=== PATIENT | female | born 1990 | race Caucasian/White ===

== ENCOUNTER 2016-09-24 19:24 | Emergency (ER) | payer MEDICAID, OTHER ==
[~2016-09-24] VITALS: Ht 154.9 cm; Wt 90.0 kg
[~2016-09-24 19:24] MED LIST: BACTDS PO; CEPH-443 PO; IBUP-1542 PO
[2016-09-24 19:30] VITALS: Ht 154.9 cm; Wt 90.0 kg
[2016-09-24 21:45] LABS: URINE BLOOD (Dip) POC Negative (NEGATIVE)
--- NOTE | 2016-09-24 22:19 | RADRPT ---
PROCEDURE: US OB. US OB Transabd / Tri CLINICAL INDICATION: Pelvic pain. 15wks TECHNIQUE: Multiple sonographic images of the pelvis were obtained. The images were reviewed on a PACS workstation. COMPARISON: No prior studies are available for comparison. FINDINGS: There is a single viable intrauterine gestation. Cardiac activity is present with 130 beats per min false pass. There is a vertex presentation. Measurements were made in order to determine age. The results are as follows: BPD =3.0 cm. HC =11.3 cm. AC =9.2 cm. FL =1.8 cm. Estimated gestational age of approximately 15 weeks and 3 days. The estimated date of delivery is 03/15/2017. Estimated delivery date by last menstrual period 07/2016. The EFW = 122 grams, 63rd percentile . The placenta is anterior, grade 0. There is no evidence for an abruption or placenta previa. There is a normal appearing amount of amniotic fluid with an none small vertical pocket = 4.3 cm. IMPRESSION: Single viable intrauterine gestation of approximately 15 weeks and 3 days. The estimated date of de livery is 03/15/2017. RPTAT: HBST . .Pal Hdz MD, MD Date Time Electronically viewed and signed by .Pal Hdz MD, on 09/24/2016 22:19 .T/
[2016-09-24 23:26] VITALS: BP 121/72; PULSE 89; RESP 18; TEMP 97.5
--- NOTE | 2016-09-25 00:48 | ERA ---
ER Documentation Chief Complaint Date/Time DATE: 09/25/16 TIME: 00:43 Chief Complaint low back pain 4 days, 15 weeks HPI Patient is a 26-year-old female presents morning of back pain. Patient is 15 weeks . Complains of a little bit of radiation of pain to the front of her stomach above the pelvic area. Patient saw her [facility] who told her to come here. Patient is back and forth. Patient describes the pain as a 3 out of 10. Patient has not recognized any factors that relieve the pain. Patient denies any dysuria, hematuria, some bleeding, spotting, pain, dyspareunia, pelvic pain , fever or change in bowel or bladder habits. ROS All systems reviewed and are negative except as per history of present illness. Medications Home Meds Active Scripts Ibuprofen* (Motrin*) 600 Mg Tab, 600 MG PO Q8 for 10 Days, #30 TAB 0 Refills Prov:ROSEY BARBA PA-C 02/11/16 Ibuprofen* (Motrin*) 600 Mg Tab, 600 MG PO Q8, #14 Prov:NINA HUGHES DO 03/05/15 Sulfamethoxazole-Trimethoprim* (Bactrim* DS) 800-160 Mg Tab, 1 TAB PO BID for 10 Days, TAB Prov:HAYES DAVID PA-C 01/03/15 Cephalexin* (Keflex*) 500 Mg Capsule, 500 MG PO QID for 7 Days, CAP Prov:HAYES DAVID PA-C 01/03/15 Allergies Allergies: Coded Allergies: acetaminophen (Verified Allergy, Unknown, 03/05/15) hydrocodone bit (Verified Allergy, Unknown, 03/05/15) PMhx/Soc History of Surgery: No Anesthesia Reaction: No Hx Neurological Disorder: No Hx Respiratory Disorders: Yes (asthma) Hx Cardiac Disorders: No Hx Psychiatric Problems: No Hx Miscellaneous Medical Probl: No Hx Alcohol Use: No Hx Substance Use: No Hx Tobacco Use: No Smoking Status: Never smoker Physical Exam Vitals Vital Signs Date Time Temp Pulse Resp B/P Pulse Ox O2 Delivery O2 Flow Rate FiO2 09/24/16 23:26 97.5 89 18 121/72 98 Room Air 09/24/16 19:30 98.2 107 18 137/81 98 Physical Exam Const: Overweight 26-year-old female Head: Atraumatic Eyes: Normal Conjunctiva ENT: Normal External Ears, Nose and Mouth. Neck: Full range of motion..~ No meningismus. Resp: Clear to auscultation bilaterally Cardio: Regular rate and rhythm, no murmurs Abd: Soft, non tender, non distended. Normal bowel sounds. He is appears to be within normal limits for size. Skin: No petechiae or rashes Back: No midline or flank tenderness Ext: No cyanosis, or edema Neur: Awake and alert Psych: Normal Mood and Affect Results 24 hrs Laboratory Tests Test 09/24/16 21:45 Bedside Urine pH (LAB) 6.5 Bedside Urine Protein (LAB) Negative Bedside Urine Glucose (UA) Negative Bedside Urine Ketones (LAB) Negative Bedside Urine Blood Negative Bedside Urine Nitrite (LAB) Negative Bedside Urine Leukocyte Esterase (L Negative Procedures/MDM Patient is a 26-year-old female who is 15 weeks complaining of back pain with radiation to the abdomen. Patient is not tender to palpation of the abdomen. Patient's urine was negative for signs of infection. Patient has no red flags to be imaged for back pain. Went ahead and got an ultrasound to evaluate the fetus. The ultrasound was unremarkable showing a viable fetus. We will go ahead and discharge this patient with return precautions. Have advised the patient to follow-up with [facility] within the next 1-3 days. I spoke with my attending who agrees my assessment and plan. Departure Diagnosis: Primary Impression: Back pain Qualified Code: M54.5 - Acute low back pain without sciatica, unspecified back pain laterality Condition: Stable Patient Instructions: Back Pain (Acute Or Chronic) Additional Instructions: Return to emergency department if symptoms worsen or neuro symptoms develop or DEWAYNE CASTELLANO PA-C Sep 25, 2016 00:48
== END 2016-09-24 23:26 | disposition home or self-care (01) ==
LOC: FTE 19:24
DX: O99.89 Other specified diseases and conditions complicating pregnancy, childbirth and the puerperium (principal); M54.5 Low back pain; J45.909 Unspecified asthma, uncomplicated; O99.512 Diseases of the respiratory system complicating pregnancy, second trimester; Z3A.15 15 weeks gestation of pregnancy
CPT/HCPCS: 76805; 81003; Z7502

== ENCOUNTER 2017-02-28 09:26 | Inpatient (IN) | payer MEDICAID, OTHER ==
[~2017-02-28] VITALS: Ht 149.9 cm; Wt 97.7 kg
[2017-02-28] MEDS ORDERED: LACTATED RINGER'S 1,000 ML IV SCH (09:39)
[2017-02-28] MEDS ORDERED: LACTATED RINGER'S 1,000 ML IV PRN (09:45)
[2017-02-28 09:52] VITALS: BMI 40.7
[2017-02-28] MEDS ORDERED: BUTORPHANOL 2 MG INJ ONE (09:55)
[2017-02-28] MEDS ORDERED: MISOPROSTOL 200 MCG TAB PR PRN ×2 (10:00→21:30)
[2017-02-28] MEDS ORDERED: LIDOCAINE 1% (MPF) 30 ML INJ INJ PRN (10:00)
[2017-02-28] MEDS ORDERED: IBUPROFEN 600 MG TAB PO PRN (10:00)
[2017-02-28] MEDS ORDERED: MINERAL OIL LIGHT 10 ML VIAL ONE (10:00)
[2017-02-28] MEDS ORDERED: METHYLERGONOVINE 0.2 MG INJ IM PRN ×2 (10:00→21:30)
[2017-02-28] MEDS ORDERED: OXYTOCIN 30 UNITS/LR 500 ML IV SCH (10:00)
[2017-02-28] MEDS ORDERED: CARBOPROST 250 MCG INJ IM PRN ×2 (10:00→21:30)
[2017-02-28] MEDS ORDERED: OXYTOCIN 30 UNITS/LR 500 ML IV PRN ×2 (10:00→21:30)
[2017-02-28] MEDS ORDERED: HYDROCODONE/APAP (5/325) TAB PO PRN ×2 (10:00→21:30)
[2017-02-28] MEDS ORDERED: AMPICILLIN 2 GM/NS (PMX) 100 ML IV ONE (10:00)
[2017-02-28] MEDS: BUTORPHANOL 2 MG INJ IV PRN ×2 (10:07→11:50)
[2017-02-28 10:08] LABS: ABNORMAL IP MESSAGE 1; BASOPHILS % 0.5 % (0.0-2.0); EOSINOPHILS # 0.1 10^3/ul (0.0-0.5); EOSINOPHILS % 1.7 % (0.0-7.0); HEMATOCRIT 44.5 % (37.0-47.0); HEMOGLOBIN 14.5 g/dl (12.0-16.0); LYMPHOCYTES % 25.6 % (15.0-51.0); MEAN CORPUSCULAR HEMOGLOBIN 29.4 pg (29.0-33.0); MEAN CORPUSCULAR HGB CONC 32.6 g/dl (32.0-37.0); MEAN CORPUSCULAR VOLUME 90.1 fl (82.0-101.0); MEAN PLATELET VOLUME 13.6 fl (7.4-10.4); MONOCYTE # 0.5 10^3/ul (0.3-0.9); MONOCYTES % 6.6 % (0.0-11.0); NEUTROPHILS % 65.1 % (39.0-77.0); PLATELET COUNT 146 10^3/UL (140-415); RED BLOOD COUNT 4.94 10^6/ul (4.20-5.40); RED CELL DISTRIBUTION WIDTH 15.4 % (11.5-14.5); WHITE BLOOD COUNT 7.7 10^3/ul (4.8-10.8)
[2017-02-28 10:09] LABS: POSITIVE DIFF @See below
[2017-02-28 10:10] VITALS: Ht 149.9 cm; Wt 97.7 kg
[2017-02-28 10:11] VITALS: BP 128/62; PULSE 80; RESP 22
[2017-02-28 10:31] LABS: INR 0.84; PROTIME 11.5 Sec (12.2-14.2); PT RATIO 0.9
[2017-02-28 10:32] LABS: PARTIAL THROMBOPLASTIN TIME 27.1 Sec (25.0-35.0)
[2017-02-28] MEDS ORDERED: ONDANSETRON 4 MG INJ IV STA (12:17)
[2017-02-28] MEDS ORDERED: ONDANSETRON 4 MG INJ ONE (12:19)
[2017-02-28] MEDS ORDERED: CITRIC ACID/NA CITRATE 30 ML CUP ONE (12:19)
[2017-02-28] MEDS ORDERED: CITRIC ACID/NA CITRATE 30 ML CUP PO ONE (12:20)
[2017-02-28] MEDS ORDERED: TRIMETHOBENZAMIDE 100 MG/ML VIAL IM PRN (12:30)
[2017-02-28] MEDS ORDERED: NALOXONE (0.4 MG/ML) INJ IV PRN (12:30)
[2017-02-28] MEDS ORDERED: DIPHENHYDRAMINE 50 MG INJ IV PRN (12:30)
[2017-02-28] MEDS ORDERED: morphine 4 MG/ML VIAL IV PRN (12:30)
[2017-02-28] MEDS ORDERED: KETOROLAC 30 MG INJ IV PRN (12:30)
[2017-02-28] MEDS ORDERED: NALBUPHINE HCL (10 MG/1 ML) INJ IV PRN (12:30)
[2017-02-28] MEDS ORDERED: FENTAnyl 2MCG/ML-ROPIV 0.2% 100 ML BAG EPI SCH (12:30)
[2017-02-28] MEDS ORDERED: ONDANSETRON 4 MG INJ IV PRN (12:30)
[2017-02-28] MEDS ORDERED: morphine 2 MG INJ IV PRN (12:30)
[2017-02-28] MEDS ORDERED: FENTAnyl 2MCG/ML-ROPIV 0.2% 100 ML ONE (12:35)
[2017-02-28] MEDS: AMPICILLIN 1 GM/NS (PMX) 50 ML IV SCH ×2 (13:50→19:00)
[2017-02-28 16:23] LABS: CBV Base Excess -10.4 mmol/L; CBV COHb 0.3 %; CBV Total Hemglobin 16.5 g/dl; Cord Blood Venous pO2 20.1 mmHG (15.0-45.0); Fraction OxyHgb Cord Venous 29.3 %; MODE ROOM AIR; Sample Type Blood venous
[2017-02-28 16:24] LABS: AADO2 Cord Arterial 30.6 mmHg; Arterial Cord Blood pCO2 86.5 mmHG (25-50); CBA Base Excess -11.9 mmol/L; CBA Oxygen Sat 15.8 mmHG; Cord Blood Arterial pO2 15.5 mmHG (15.0-45.0); Fraction OxyHgb Cord Arterial 15.4 %; MODE ROOM AIR
--- NOTE | 2017-02-28 16:25 | HP ---
Date/Time of Note Date/Time of Note DATE: 02/28/17 TIME: 16:24 OB - History Hx of Present Free Text/Dictation g2-1 co of ucx : 2 Para: 1 Care: Good Care Ultrasounds: Normal mid trimester US Obstetrical Complications: Gestational Diabetes Past Family/Social History * Past Medical, Surgical, Family and Obstetric Histories reviewed from chart. OB Admission Exam Vital Signs Vital Signs Vital Signs Date Time Temp Pulse Resp B/P Pulse Ox O2 Delivery O2 Flow Rate FiO2 02/28/17 10:11 98.4 80 22 128/62 Room Air Physical Exam Heart: Rhythm Normal Extremities: Normal Reflexes: Normal Cervical Dilatation: 4cm Heart Rate: 140's Intensity: Moderate Last 72 hourBlood Glucose Bedside Glucose - 72 Hours Test 02/28/17 10:53 Bedside Glucose 87mg/dL (70-220) Last 72 hours Lab Results CBC & BMP 02/28/17 09:45 OB Assessment/Plan Reason for admission: active labor Plan: Expectant Management Other plan: admit for labor gbs pos amp gdm blood sugar check REBECA SINGH MD Feb 28, 2017 16:25
--- NOTE | 2017-02-28 16:26 | LDN ---
Date/Time of Note Date/Time of Note DATE: 02/28/17 TIME: 16:26 Delivery Summary Placenta Delivered: Spontaneously Meconium: none Laceration repair: 2nd vaginal tear Anesthesia type: Epidural Sponge & Needle done & correct: Yes All needle counts correct: Yes Any foreign bodies felt in the: No Problems: Delivery Information Sex Infant Sex: male Apgars 1 Minute: 7 5 Minute: 9 Suctioning Nose & mouth suctioned at mihir: Yes Umbilical Cord Umbilical cord with: 3 Vessels Cord presentations: no nuchal cord Cord Blood was obtained: Yes REBECA SINGH MD Feb 28, 2017 16:26
[2017-02-28] MEDS: OXYTOCIN 30 UNITS/LR 500 ML IV SCH ×3 (16:28→23:33)
[2017-02-28 20:40] VITALS: BP 105/52; PULSE 104; RESP 18
[2017-02-28] MEDS ORDERED: LACTATED RINGER'S 1,000 ML IV* SCH (21:04)
[2017-02-28] MEDS ORDERED: WITCH HAZEL/GLYCERIN PAD PR PRN (21:30)
[2017-02-28] MEDS ORDERED: DIBUCAINE 1% 30 GM OINT PR PRN (21:30)
[2017-02-28] MEDS ORDERED: LANOLIN 7 GM TUBE TOP PRN (21:30)
[2017-02-28] MEDS ORDERED: SENNA/DOCUSATE NA (8.6MG/50MG) TAB PO PRN (21:30)
[2017-02-28] MEDS: SENNA/DOCUSATE NA (8.6MG/50MG) TAB PO SCH (21:43)
[2017-02-28] MEDS: MAGNESIUM HYDROXIDE 30ML CUP PO SCH (21:43)
[2017-02-28] MEDS: IBUPROFEN 600 MG TAB PO SCH (23:32)
[2017-03-01 00:20] VITALS: BP 100/59; PULSE 104; RESP 18
[2017-03-01] MEDS: OXYTOCIN 30 UNITS/LR 500 ML IV SCH (01:04)
[2017-03-01 04:10] VITALS: BP 95/55; PULSE 90; RESP 18
[2017-03-01] MEDS: IBUPROFEN 600 MG TAB PO SCH ×4 (05:44→23:30)
[2017-03-01 08:00] VITALS: BP 83/51; PULSE 91; RESP 16
[2017-03-01] MEDS: MAGNESIUM HYDROXIDE 30ML CUP PO SCH ×2 (09:00→21:47)
[2017-03-01 09:53] LABS: ABNORMAL IP MESSAGE 1; BASOPHILS % 0.4 % (0.0-2.0); EOSINOPHILS # 0.1 10^3/ul (0.0-0.5); EOSINOPHILS % 0.5 % (0.0-7.0); HEMOGLOBIN 10.7 g/dl (12.0-16.0); LYMPHOCYTES % 17.2 % (15.0-51.0); MEAN CORPUSCULAR HEMOGLOBIN 30.3 pg (29.0-33.0); MEAN CORPUSCULAR HGB CONC 33.4 g/dl (32.0-37.0); MEAN CORPUSCULAR VOLUME 90.7 fl (82.0-101.0); MEAN PLATELET VOLUME 13.4 fl (7.4-10.4); MONOCYTE # 0.7 10^3/ul (0.3-0.9); MONOCYTES % 5.7 % (0.0-11.0); NEUTROPHIL # 8.6 10^3/ul (1.6-7.5); NEUTROPHILS % 75.6 % (39.0-77.0); PLATELET COUNT 133 10^3/UL (140-415); RED BLOOD COUNT 3.53 10^6/ul (4.20-5.40); RED CELL DISTRIBUTION WIDTH 15.9 % (11.5-14.5); WHITE BLOOD COUNT 11.4 10^3/ul (4.8-10.8)
[2017-03-01] MEDS: SENNA/DOCUSATE NA (8.6MG/50MG) TAB PO SCH ×2 (09:59→21:47)
[2017-03-01 10:12] LABS: POSITIVE DIFF @See below
[2017-03-01 16:00] VITALS: BP 84/55; PULSE 94; RESP 16
--- NOTE | 2017-03-01 18:21 | QN ---
Documentation Comment No complaint Afebrile VSS Fundus firm Lochia scant PPD #1 Stable Continue present care. CHRISTIANO NEWMAN MD Mar 01, 2017 18:20
--- NOTE | 2017-03-01 18:21 | DS ---
Date/Time of Note Date/Time of Note DATE: 03/01/17 TIME: 18:21 Obstetrical Discharge Record Final Diagnosis Final Diagnosis: Term delivered Vaginal Delivery Obstetrical Delivery: Spontaneous, Laceration, Repaired Condition on Discharge Physical Assessment Voiding: Yes Bowel Movement: Yes Breast: Soft, non-tender Fundus: Firm Calf Tenderness: No Patient Condition: Stable CHRISTIANO NEWMAN MD Mar 01, 2017 18:21
[2017-03-01 20:20] VITALS: BP 101/59; PULSE 99; RESP 18
[2017-03-02 03:50] VITALS: BP 93/57; PULSE 80; RESP 18
[2017-03-02] MEDS: IBUPROFEN 600 MG TAB PO SCH ×3 (05:47→17:41)
[2017-03-02 08:00] VITALS: BP 83/50; PULSE 84; RESP 16
[2017-03-02] MEDS: SENNA/DOCUSATE NA (8.6MG/50MG) TAB PO SCH (08:55)
[2017-03-02] MEDS: MAGNESIUM HYDROXIDE 30ML CUP PO SCH (09:00)
[2017-03-02 16:00] VITALS: BP 108/57; PULSE 83; RESP 16
== END 2017-03-02 18:00 | disposition home or self-care (01) | DRG 775 ==
LOC: OBT 09:26 → L-D 09:26 → OBT 09:29 → L-D 09:30 → PP1 20:41
PROVIDERS: ADMIT Obstetrics & Gynecology; ATTEND Obstetrics & Gynecology
PROC: 10E0XZZ Delivery of Products of Conception, External Approach (ICD-10-PCS; principal; 2017-02-28)
PROC: 0KQM0ZZ Repair Perineum Muscle, Open Approach (ICD-10-PCS; 2017-02-28)
PROC: 3E033VJ Introduction of Other Hormone into Peripheral Vein, Percutaneous Approach (ICD-10-PCS; 2017-02-28)
DX: O24.429 Gestational diabetes mellitus in childbirth, unspecified control (principal); O71.4 Obstetric high vaginal laceration alone; Z3A.38 38 weeks gestation of pregnancy; Z37.0 Single live birth
CPT/HCPCS: 36415; 36600; 62319; 82803; 82962; 85025; 85610; 85730; 86592; 86900; 86901; 87340; 94760; 99464; G0463; J0290; J0595; J2405; J2590; J3010; J7120

== ENCOUNTER 2017-10-03 14:39 | Emergency (ER) | END 2017-10-03 20:11 | disposition home or self-care (01) ==